=== PATIENT | female | born 1995 | race African-American/Black ===

== ENCOUNTER 2017-01-14 19:26 | Emergency (ER) | payer SELFPAY ==
[~2017-01-14] VITALS: Ht 165.1 cm; Wt 165.0 kg
[2017-01-15] MEDS ORDERED: CEFTRIAXONE SODIUM 250 MG/VIAL IM ONE (02:15)
[2017-01-15] MEDS ORDERED: AZITHROMYCIN 500 MG TABLET PO ONE (02:15)
[2017-01-15 02:27] LABS: CLARITY URINE CLOUDY (CLEAR); COLOR URINE DARK YELLOW (YELLOW); GLUCOSE URINE NEGATIVE (NEGATIVE); KETONES URINE 2+ (NEGATIVE); LEUKOCYTE ESTERASE URINE 2+ (NEGATIVE); NITRITE URINE NEGATIVE (NEGATIVE); OCCULT BLOOD URINE TRACE (NEGATIVE); PH URINE 5.5 (4.5-8.0); PROTEIN URINE TRACE (NEGATIVE); SPECIFIC GRAVITY URINE 1.032 (1.005-1.030); UROBILINOGEN URINE 0.2 E.U./dL (0.2-1.0)
[2017-01-15 03:35] VITALS: BP 130/79
[2017-01-18 09:12] LABS: CHLAMYDIA TRACHOMATIS NAA Negative (Negative); NEISSERIA GONORRHOEAE NAA Negative (Negative)
== END 2017-01-15 03:46 | disposition home or self-care (01) ==
LOC: ER 01-15 01:00
DX: N76.0 Acute vaginitis (principal); N39.0 Urinary tract infection, site not specified; J45.909 Unspecified asthma, uncomplicated
CPT/HCPCS: 81001; 87081; 87210; 87491; 87591; 96372; 99284; J0696; Z7610